=== PATIENT | female | born 1990 | race Caucasian/White ===

== ENCOUNTER → 2017-07-08 | Outpatient (CLI) | payer OTHER | END | disposition home or self-care (01) | LOC: C.PAPS 14:05 | PROVIDERS: ATTEND Physician Assistant | DX: Z12.4 Encounter for screening for malignant neoplasm of cervix (principal); R87.615 Unsatisfactory cytologic smear of cervix ==

== ENCOUNTER → 2017-07-08 | Outpatient (CLI) | payer OTHER ==
[2017-07-10 22:59] LABS: CHLAMYDIA TRACH RNA*** NOT DETECTED (NOT DETECTED); GC (NEIS GONORRHOEAE)RNA** NOT DETECTED (NOT DETECTED)
== END | disposition home or self-care (01) ==
LOC: C.LABSPEC 14:17
PROVIDERS: ATTEND Physician Assistant
DX: Z01.419 Encounter for gynecological examination (general) (routine) without abnormal findings (principal)

== ENCOUNTER → 2017-07-15 | Outpatient (CLI) | payer OTHER | END | disposition home or self-care (01) | LOC: C.PAPS 10:21 | PROVIDERS: ATTEND Physician Assistant | DX: R87.615 Unsatisfactory cytologic smear of cervix (principal) ==

== ENCOUNTER → 2017-11-22 | Outpatient (CLI) | payer OTHER | END | disposition home or self-care (01) | LOC: C.PATHSPEC 17:10 | PROVIDERS: ATTEND Plastic Surgery | DX: D22.72 Melanocytic nevi of left lower limb, including hip (principal) ==

== ENCOUNTER 2020-01-25 11:36 | Inpatient (IN) ==
[2020-01-25] MEDS ORDERED: OXYTOCIN 30 UNITS/500 ML BAG IV PRN ×2 (11:55→12:56)
[2020-01-25] MEDS: LACTATED RINGER'S 1,000 ML IV PRN ×4 (12:00→20:05)
[2020-01-25 12:13] LABS: Hematocrit (blood only) 38.2 % (37-47); Hemoglobin 12.7 g/dL (12.0-16.0); Mean Corpuscular Hemoglobin 31.1 pg (25-34); Mean Corpuscular Volume 93.6 fL (80-100); Mean Platelet Volume 10.7 fL (7.4-10.4); Platelet Count 217 K/uL (130-400); RDW Coefficient of Variation 12.8 % (11.5-14.5); Red Blood Count 4.08 M/uL (4.2-5.4); White Blood Count 15.82 K/uL (4.8-10.8)
[2020-01-25] MEDS ORDERED: ePHEDrine sulfate 50 MG/ML AMP ONE (12:13)
[2020-01-25] MEDS ORDERED: BUPIVACAINE 0.25% 30 ML VIAL ONE (12:13)
[2020-01-25] MEDS ORDERED: fentaNYL 2MCG/ML ROPIV 1.25MG/ML 100 ML BAG EPI ONE (12:14)
[2020-01-25] MEDS ORDERED: fentaNYL citrate 100 MCG/2 ML VIAL ONE (12:14)
--- NOTE | 2020-01-25 12:56 | Labor Progress Brief Note ---
Date of Service January 25, 2020 Subjective Patient just received epidural, is beginning to feel more comfortable. LOF clear, no VB, good FM. Assessment & Plan (1) SROM (spontaneous rupture of membranes): Epidural in place, no further progress since admission, will start pitocin as patient is ruptured and comfortable. GBS neg. Physical Exam Physical Exam: FHT Cat 1 [place] not well traced LOF clear Noted to have 2VC and velamentous insertion. No VB currently. Results & Data Vital Signs (Past 12 Hours) Vital Signs Temp Pulse Resp BP Pulse Ox 01/25/20 12:52 115 H 108/63 01/25/20 12:50 102 H 112/64 01/25/20 12:49 111 H 94 01/25/20 12:44 113 H 84 L 01/25/20 12:39 99 H 99 01/25/20 12:34 101 H 99 01/25/20 12:29 92 H 99 01/25/20 12:25 96 H 105/69 01/25/20 12:24 102 H 99 01/25/20 11:44 98.2 F 114 H 20 104/61 Coding Level of Care Code None Diagnoses SROM (spontaneous rupture of membranes)
[2020-01-25 13:07] LABS: Mean Corpuscular Hgb Conc 33.2 g/dL (32-36)
--- NOTE | 2020-01-25 13:07 | Anesthesiology Consultation ---
Date of Service January 25, 2020 Assessment & Plan (1) Encounter for pre-operative examination: Chart Review Chart Review: Acceptable Risk for Surgery and Patient NOT seen in Pre Admission Testing Consults Requested none ASA ASA2 Proposed Anesthesia Anesthesia Type: Labor Epidural Risk / Benefits Reviewed With: PT / POA / Parent / Guardian, Accepts Plan and Informed Consent Obtained History Height/Weight Height: 5 ft 9 in Weight: 143 kg Allergies Allergy/AdvReac Type Severity Reaction Status Date / Time No Known Allergies Allergy Unknown NONE Verified 01/20/20 10:53 Medications Home Medications Medication Instructions Recorded Confirmed Last Taken prenat.vits,eloisa,oyj-[id number]-ftuzf 1 tab PO DAILY 07/08/19 01/20/20 Unknown Active Medications Generic Name Dose Route Start Last Admin Trade Name Freq PRN Reason Stop Dose Admin Lactated Ringer's 1,000 mls @ 125 mls/hr 01/25/20 11:55 01/25/20 13:07 Lr IV 01/27/20 11:54 999 mls/hr .Q8H PRN Administration L&D Protocol Protocol NPO Date Last Intake of Fluids: 01/25/20 Time Last Intake of Fluids: 12:00 Date Last Intake of Solids: 01/25/20 Time Last Intake of Solids: 09:00 Past Medical History Medical History History of epilepsy as a child Exercise / Class Metabolic Activity II 4-5 Yardwork/Stairs/Walk up hill Past Family History Family History Grandfather Cardiac disorder Grandmother Cardiac disorder Aunt Breast cancer Mother Ulcerative colitis Father Hyperlipidemia Denies family history of Ovarian cancer Prostate cancer Myocardial infarction Colorectal cancer Past Surgical History Surgical History History of tonsillectomy S/P wisdom tooth extraction Past Anesthesia History No Hx of Anesthesia Complications and No Family Hx of Anesthesia Complications History of PONV No Hx of PONV and No Hx of Motion Sickness Social History Smoking Status: Never smoker Hx Alcohol Use: No Hx Substance Use: No Physical Exam Vital Signs Last Vital Signs Temp 36.8 C 01/25/20 11:44 Pulse 78 01/25/20 13:04 Resp 20 01/25/20 11:44 BP 107/56 L 01/25/20 13:04 Pulse Ox 98 01/25/20 13:04 ENMT Mouth: no dentition abnormality Thyromental Distance: > or= 3.5 Finger Breadths Mallampati Class: II Neck normal visual inspection Respiratory normal respiratory effort Auscultation: lungs clear to auscultation bilaterally Cardiovascular Rate/Rhythm: regular rate and regular rhythm Psychiatric Orientation: alert Testing Laboratory Results 01/25/20 12:06
[2020-01-25] MEDS ORDERED: DiphenhydrAMINE HCL 50 MG/ML VIAL IV PRN ×2 (13:08→20:03)
[2020-01-25] MEDS ORDERED: ONDANSETRON INJ 2 MG/ML 2 ML VIAL IV PRN ×3 (13:08→20:10)
[2020-01-25] MEDS ORDERED: ePHEDrine sulfate 50 MG/ML AMP IV PRN ×2 (13:08→20:03)
[2020-01-25] MEDS ORDERED: PROMETHAZINE HCL 6.25 MG in SODIUM CHLORIDE 0.9% 50 ML IV PRN (13:08)
[2020-01-25] MEDS ORDERED: fentaNYL 2MCG/ML ROPIV 1.25MG/ML 100 ML BAG EPI PRN (13:08)
[2020-01-25] MEDS ORDERED: NALBUPHINE HCL INJ 10 MG/ML AMP IV PRN ×2 (13:08→20:03)
[2020-01-25] MEDS ORDERED: NALOXONE HCL 1 MG in SODIUM CHLORIDE 0.9% 1000ML 1,000 ML IV PRN ×2 (13:08→20:03)
[2020-01-25] MEDS ORDERED: NALOXONE HCL 0.4 MG/1 ML VIAL/CARP IV PRN ×2 (13:08→20:03)
--- NOTE | 2020-01-25 17:38 | Labor Progress Brief Note ---
Date of Service January 25, 2020 Subjective Comfortable with epidural. Patient and FOB continue to both deny any CP, SOB, cough or COVID exposures. Assessment & Plan (1) SROM (spontaneous rupture of membranes): Progress is being made. Continue augmentation of labor. Reassuring variability and accels noted. Baseline top normal to high; ephedrine effect worn off long ago, no fever at this time, uncertain significance of baseline but watching closely. (2) Two vessel umbilical cord: (3) Velamentous insertion of umbilical cord: Physical Exam Physical Exam: baseline at or just above top of normal range. Moderate variability. Accels present. Variable decels noted. Cat 2. [place] Q2min. Cvx 8/90/0 Temp 37.4 checked due to FHT. Results & Data Vital Signs (Past 12 Hours) Vital Signs Temp Pulse Resp BP Pulse Ox 01/25/20 17:34 97 H 100 01/25/20 17:29 92 H 100 01/25/20 17:25 82 103/59 L 01/25/20 17:24 74 99 01/25/20 17:19 77 100 01/25/20 17:14 114 H 100 01/25/20 17:11 75 111/63 01/25/20 17:09 100 H 100 01/25/20 17:04 114 H 100 01/25/20 16:59 75 100 01/25/20 16:55 80 105/64 01/25/20 16:54 72 99 01/25/20 16:49 101 H 99 01/25/20 16:44 84 99 01/25/20 16:42 85 103/62 01/25/20 16:39 76 100 01/25/20 16:34 80 99 01/25/20 16:29 75 99 01/25/20 16:25 90 91/57 L 01/25/20 16:24 79 98 01/25/20 16:19 76 99 01/25/20 16:14 82 99 01/25/20 16:11 88 100/62 01/25/20 16:09 73 100 01/25/20 16:04 91 H 96 01/25/20 15:59 101 H 99 01/25/20 15:58 83 90 01/25/20 15:56 77 115/66 01/25/20 15:54 74 96 01/25/20 15:49 77 97 01/25/20 15:44 77 98 01/25/20 15:41 72 119/64 01/25/20 15:39 74 98 01/25/20 15:34 79 98 01/25/20 15:30 97.5 F L 01/25/20 15:29 102 H 99 01/25/20 15:26 91 H 118/61 01/25/20 15:24 78 100 01/25/20 15:21 82 93 01/25/20 15:19 73 99 01/25/20 15:14 85 99 01/25/20 15:11 78 112/57 L 01/25/20 15:09 83 98 01/25/20 15:04 74 99 01/25/20 14:59 79 99 01/25/20 14:58 93 H 92 01/25/20 14:54 87 99 01/25/20 14:49 93 H 100 01/25/20 14:44 100 H 100 01/25/20 14:40 91 H 98/64 L 01/25/20 14:39 76 100 01/25/20 14:34 123 H 98 01/25/20 14:29 78 97 01/25/20 14:26 99 H 96/63 L 01/25/20 14:24 69 98 01/25/20 14:19 99 H 98 01/25/20 14:14 73 99 01/25/20 14:11 121 H 81/50 L 01/25/20 14:09 102 H 99 01/25/20 14:04 75 100 01/25/20 13:59 101 H 100 01/25/20 13:55 84 104/65 01/25/20 13:54 84 99 01/25/20 13:49 83 100 01/25/20 13:45 123 H 91 01/25/20 13:44 76 95 01/25/20 13:41 83 111/73 01/25/20 13:40 102 H 91 01/25/20 13:39 107 H 98 01/25/20 13:34 108 H 96 01/25/20 13:29 80 99 01/25/20 13:25 95 H 103/61 01/25/20 13:24 109 H 100 01/25/20 13:22 98.1 F 20 01/25/20 13:20 72 114/65 01/25/20 13:19 77 100 01/25/20 13:16 78 116/61 01/25/20 13:15 104 H 82/49 L 01/25/20 13:14 124 H 98 01/25/20 13:09 98.4 F 72 20 126/71 97 01/25/20 13:08 96 H 126/71 01/25/20 13:06 78 139/65 01/25/20 13:04 78 107/56 L 98 01/25/20 13:02 90 107/56 L 01/25/20 13:00 115 H 115/58 L 01/25/20 12:59 85 98 01/25/20 12:58 70 62/34 L 01/25/20 12:57 75 54/30 L 01/25/20 12:56 82 63/37 L 01/25/20 12:54 103 H 86/50 L 99 01/25/20 12:52 115 H 108/63 01/25/20 12:50 102 H 112/64 01/25/20 12:49 111 H 94 01/25/20 12:44 113 H 84 L 01/25/20 12:39 99 H 99 01/25/20 12:34 101 H 99 01/25/20 12:29 92 H 99 01/25/20 12:25 96 H 105/69 01/25/20 12:24 102 H 99 01/25/20 11:44 98.2 F 114 H 20 104/61 Coding Level of Care Code None Diagnoses SROM (spontaneous rupture of membranes) Two vessel umbilical cord Q27.0 Velamentous insertion of umbilical cord O43.129
[2020-01-25] MEDS ORDERED: CITRIC ACID/SODIUM CITRATE 15 ML UDC ONE (18:49)
--- NOTE | 2020-01-25 18:49 | Labor Progress Brief Note ---
Date of Service January 25, 2020 Subjective Patient comfortable except for some back ache. No urge to push. Assessment & Plan (1) SROM (spontaneous rupture of membranes): Discussion of risks and benefits of proceeding to which I recomme nd at this time. She was not able to demonstrate likelihood of rapid vaginal delivery, She is still normotensive and I therefore doubt tylenol or antibiotic will change the tachycardia, and at this point condition is worsening rather than improving despite fluid resuscitation, reposition and oxygen. The parents are well educated and able to understand risks / benefits, and consent to proceeding. Section called. Anesthesia notified and en route from home. Dr. Copeland called to assist and en route from home. STAT noted. Physical Exam Physical Exam: FHT continue to deteriorate with worsening tachycardia, baseline up to 190 with moderate variability but variable decels and no further accels. [place] Q2-4min. Pitocin stopped. Cvx 9cm, +1. Test push tried to see if Daja could push past the remaining cervix and deliver rapidly. Unfortuntely the fetus is in transverse position and she is unable to push past the remaining cervix or rotate the into an A-P orientation. Results & Data Vital Signs (Past 12 Hours) Vital Signs Temp Pulse Resp BP Pulse Ox 01/25/20 18:41 88 109/66 01/25/20 18:40 93 H 91 01/25/20 18:39 81 100 01/25/20 18:34 86 100 01/25/20 18:29 87 100 01/25/20 18:26 79 116/67 01/25/20 18:24 95 H 100 01/25/20 18:19 82 100 01/25/20 18:14 100 H 100 01/25/20 18:12 78 108/62 01/25/20 18:10 99.3 F 89 20 87 L 01/25/20 18:09 87 100 01/25/20 18:04 98 H 99 01/25/20 17:59 91 H 96 01/25/20 17:56 90 98/64 L 01/25/20 17:54 117 H 97 01/25/20 17:49 99 H 94/55 L 97 01/25/20 17:47 99 H 92 01/25/20 17:44 87 92 01/25/20 17:43 89 86/53 L 01/25/20 17:42 107 H 92 01/25/20 17:39 127 H 97 01/25/20 17:34 99.3 F 97 H 20 100 01/25/20 17:29 92 H 100 01/25/20 17:25 82 103/59 L 01/25/20 17:24 74 99 01/25/20 17:19 77 100 01/25/20 17:14 114 H 100 01/25/20 17:11 75 111/63 01/25/20 17:09 100 H 100 01/25/20 17:04 114 H 100 01/25/20 16:59 75 100 01/25/20 16:55 80 20 105/64 01/25/20 16:54 72 99 01/25/20 16:49 101 H 99 01/25/20 16:44 84 99 01/25/20 16:42 85 103/62 01/25/20 16:39 76 100 01/25/20 16:34 80 99 01/25/20 16:29 75 99 01/25/20 16:25 90 18 91/57 L 01/25/20 16:24 79 98 01/25/20 16:19 76 99 01/25/20 16:14 82 99 01/25/20 16:11 88 100/62 01/25/20 16:09 73 100 01/25/20 16:04 91 H 96 01/25/20 15:59 101 H 99 01/25/20 15:58 83 90 01/25/20 15:56 77 20 115/66 01/25/20 15:54 74 96 01/25/20 15:49 77 97 01/25/20 15:44 77 98 01/25/20 15:41 72 119/64 01/25/20 15:39 74 98 01/25/20 15:34 79 98 01/25/20 15:30 97.5 F L 20 01/25/20 15:29 102 H 99 01/25/20 15:26 91 H 118/61 01/25/20 15:24 78 100 01/25/20 15:21 82 93 01/25/20 15:19 73 99 01/25/20 15:14 85 99 01/25/20 15:11 78 112/57 L 01/25/20 15:09 83 98 01/25/20 15:04 74 99 01/25/20 14:59 79 99 01/25/20 14:58 93 H 92 01/25/20 14:54 87 99 01/25/20 14:49 93 H 100 01/25/20 14:44 100 H 100 01/25/20 14:40 91 H 20 98/64 L 01/25/20 14:39 76 100 01/25/20 14:34 123 H 98 01/25/20 14:29 78 97 01/25/20 14:26 99 H 96/63 L 01/25/20 14:24 69 98 01/25/20 14:19 99 H 98 01/25/20 14:14 73 99 01/25/20 14:11 121 H 81/50 L 01/25/20 14:09 102 H 99 01/25/20 14:04 75 100 01/25/20 13:59 101 H 100 01/25/20 13:55 84 104/65 01/25/20 13:54 84 99 01/25/20 13:49 83 100 01/25/20 13:45 123 H 91 01/25/20 13:44 76 95 01/25/20 13:41 83 20 111/73 01/25/20 13:40 102 H 91 01/25/20 13:39 107 H 98 01/25/20 13:34 108 H 96 01/25/20 13:29 80 99 01/25/20 13:25 95 H 103/61 01/25/20 13:24 109 H 100 01/25/20 13:22 98.1 F 20 01/25/20 13:20 72 114/65 01/25/20 13:19 77 100 01/25/20 13:16 78 116/61 01/25/20 13:15 104 H 82/49 L 01/25/20 13:14 124 H 98 01/25/20 13:09 98.4 F 72 20 126/71 97 01/25/20 13:08 96 H 126/71 01/25/20 13:06 78 139/65 01/25/20 13:04 78 107/56 L 98 01/25/20 13:02 90 107/56 L 01/25/20 13:00 115 H 20 115/58 L 01/25/20 12:59 85 98 01/25/20 12:58 70 62/34 L 04/06/20 12:57 75 54/30 L 01/25/20 12:56 82 63/37 L 01/25/20 12:54 103 H 86/50 L 99 01/25/20 12:52 115 H 108/63 01/25/20 12:50 102 H 112/64 01/25/20 12:49 111 H 94 01/25/20 12:44 113 H 84 L 01/25/20 12:39 99 H 99 01/25/20 12:34 101 H 99 01/25/20 12:29 92 H 99 01/25/20 12:25 96 H 105/69 01/25/20 12:24 102 H 99 01/25/20 11:44 98.2 F 114 H 20 104/61 Coding Level of Care Code None Diagnoses SROM (spontaneous rupture of membranes)
[2020-01-25] MEDS ORDERED: CITRIC ACID/SODIUM CITRATE 15 ML UDC PO SCH (19:00)
[2020-01-25] MEDS ORDERED: CEFAZOLIN 2000MG 2,000 MG/15 ML SYR IV SCH (19:00)
[2020-01-25] MEDS ORDERED: MoRPHine SULFATE PF 1 MG/ML 10 ML AMP/VIAL ONE (19:11)
[2020-01-25] MEDS ORDERED: EPINEPHrine INJ 1 MG/ML AMP ONE (19:13)
[2020-01-25] MEDS ORDERED: CHLOROPROCAINE HCL 3% 20 ML VIAL ONE ×3 (19:13→19:15)
[2020-01-25] MEDS ORDERED: OXYTOCIN 10 UNITS/ML VIAL ONE (19:13)
[2020-01-25] MEDS ORDERED: ONDANSETRON INJ 2 MG/ML 2 ML VIAL ONE (19:13)
[2020-01-25] MEDS ORDERED: SODIUM BICARBONATE 8.4% INJ 50 MEQ/50 ML VIAL ONE (19:13)
--- NOTE | 2020-01-25 19:38 | Operative Report ---
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 Normal tubes, ovaries. Anterior-fundal placenta. in LOT position. Specimens Placenta Cord blood Cord blood gases Drains Collins Anesthesia Type Spinal Complications none Disposition Accompanied Patient To Recovery: Yes Disposition: L&D Description of Procedure The patient was brought to the operating room and placed on the table in the supine position with a leftward tilt, then prepped and draped in standard sterile fashion. A hard time out was taken prior to proceeding. A pfannensteil incision was created sharply and carried down to the fascia using bovie electrocautery. The fascia was nicked and then extended using tam scissors. The edges of the fascia were grasped with Umair clamps and elevated, then sharply and bluntly dissected off the underlying rectus. The midline of the rectus was identified and bluntly . The peritoneum was bluntly entered, and this entry was extended using pressure from the surgeon's hands. The bladder retractor was placed and the lower uterine segment was examined and found to be well developed but with a notable Bendel's Ring between the MICHAELA and the midportion of the uterine body. Additionally, a soft 8-9cm vascular bundle was noted at the left posterior cornu. A bladder flap was created and the retractor was replaced behind this flap to protect the bladder. A transverse lower uterine incision was then created, with final entry to the uterine cavity made in a blunt manner with the surgeon's finger. Clear amniotic fluid was encountered. The head was elevated to the incision and delivered using mild fundal pressure. The cord was doubly clamped and cut, then the vigorous infant was taken to the warmer for loss prevention auditor care. The placenta was manually extracted, then the uterus was gently exteriorized from the maternal abdomen. The cavity was cleared of clot and debris using a dry lap sponge. The angles of the incision were identified with allis clamps, and the hysterotomy was then repaired in running locked fashion using 0-vicryl suture, followed by a second imbricating layer. The tubes and ovaries were examined and found to be normal bilaterally. Even though the uterus contracted very nicely to a firm overall tone, the 8-9cm lump protruding from the posterior L cornu remained present and unchanged. It was soft, partially compressible, and appeared to be comprised of a tangle of dilated vessels. The FOB is an orthopedic surgeon and was offered - and accepted - an opportunity to view this structure. We discussed that the differential includes AVM, Adenomyoma, atypical placentation, and far less likely malignancy. Given the current excellent uterine tone, easy release of the placenta and lack of excessive bleeding I doubt abnormal placentation. We discussed the recommendation to close per usual, observe clinically, and re- image the uterus to further characterize this finding if it persists. The posterior gutter was irrigated and cleared of clot and debris. The uterus was then gently re-internalized to the abdomen. Lateral gutters were cleared of clot and debris using a damp lap sponge, and a final exam of the hysterotomy revealed good hemostasis. The rectus muscles were allowed to reapproximate naturally. The angle of the fascia was grasped with a Umair clamp and the fascia was then repaired in running non-locked fashion with 1-vicryl suture. At the completion of repair, the fascia was examined and found to be free of any defect. The subcutaneous tissue was copiously irrigated and then reapproximated using 3-0 chromic. The skin was then closed using 4-0 monocryl in a running subcuticular fashion and a dermabond dressing was applied. The collins was noted to be draining clear yellow urine as the patient was transferred back to her recovery room. I attest to the content of the Intraoperative Record and any orders documented therein. Any exceptions are noted below.
[2020-01-25 19:55] LABS: Base Excess Cord Arterial Bld 0.4 mEq/L (-9-1.8); Base Excess Cord Venous Blood -1.7 mEq/L (-7.7-1.9); CO2 Cord Arterial Blood 44 mmHg (39.1-73.5); Cord Venous Blood HCO3 23 mmol/L (18.4-26.8); Cord Venous Blood PCO2 38 mmHg (30.4-57.2); Cord Venous Blood PO2 34 mmHg (14.1-43.3); Cord Venous Blood pH 7.39 (7.20-7.44); HCO3 Cord Arterial Blood 26 mmol/L (19.7-28.5); PO2 Cord Arterial Blood 25 mmHg (4.1-31.7); pH Cord Arterial Blood 7.38 (7.1-7.38)
[2020-01-25] MEDS ORDERED: NALOXONE HCL 0.08 MG in SYRINGE 1.8 ML IV PRN (20:03)
[2020-01-25] MEDS ORDERED: HYDROmorphone INJ 0.5 MG/0.5 ML SYR IV PRN (20:03)
[2020-01-25] MEDS ORDERED: LACTATED RINGER'S 500 ML IV PRN (20:03)
[2020-01-25] MEDS ORDERED: MoRPHine SULFATE PF 1 MG/ML 10 ML AMP/VIAL EPI ONE (20:03)
[2020-01-25] MEDS ORDERED: KETOROLAC 30 MG/ML VIAL IV PRN (20:03)
[2020-01-25] MEDS ORDERED: HYDROCORTISONE ACETATE 25 MG SUPP PR PRN (20:10)
[2020-01-25] MEDS ORDERED: SENNA 8.6 MG TAB PO PRN (20:10)
[2020-01-25] MEDS ORDERED: MAGNESIUM HYDROXIDE SUSP 30 ML UDC PO PRN (20:10)
[2020-01-25] MEDS ORDERED: DIPHTHERIA/TETANUS/PERTUSSIS 0.5 ML SYR/VIAL IM ONE (20:10)
[2020-01-25] MEDS ORDERED: BENZOCAINE 20% AER SPR 82.5 GM CAN EXT PRN (20:10)
[2020-01-25] MEDS ORDERED: SUPERCREAM 0.870% 15 GM JAR EXT PRN (20:10)
[2020-01-25] MEDS ORDERED: DC INTRASPINAL MORPHINE SCH (20:15)
[2020-01-25] MEDS ORDERED: NO NARCOTICS OR SEDATIVES SCH (20:15)
[2020-01-25] MEDS ORDERED: SODIUM CHLORIDE 0.9% 1000ML 1,000 ML IV SCH (20:15)
[2020-01-25] MEDS ORDERED: OXYTOCIN 30 UNITS in LACTATED RINGER'S 1,000 ML IV SCH (20:30)
--- NOTE | 2020-01-25 21:15 | Anesthesiology Progress Note ---
Date of Service January 25, 2020 Anesthesia Post Procedure Vital Signs Vital Signs: Temp Pulse Resp BP Pulse Ox 01/25/20 21:07 88 98 01/25/20 21:06 86 110/59 L 01/25/20 21:02 92 H 98 01/25/20 20:57 99 H 98 01/25/20 20:56 96 H 102/56 L 01/25/20 20:52 98 H 98 01/25/20 20:47 122 H 94/50 L 98 01/25/20 20:45 18 01/25/20 20:42 135 H 98 01/25/20 20:37 146 H 83/44 L 98 01/25/20 20:35 18 01/25/20 20:32 127 H 98 01/25/20 20:28 131 H 90/54 L 01/25/20 20:27 116 H 86/51 L 97 01/25/20 20:25 18 01/25/20 20:22 142 H 98 01/25/20 20:20 125 H 92/53 L 01/25/20 20:17 135 H 98 01/25/20 20:15 18 01/25/20 20:12 109 H 98 01/25/20 20:11 190 H 147/109 H 01/25/20 20:08 164/125 H 01/25/20 20:06 126 H 93 01/25/20 20:05 18 01/25/20 20:01 116 H 89 L 01/25/20 19:56 115 H 92 01/25/20 19:55 37.1 C 18 01/25/20 19:52 106 H 94 01/25/20 19:51 104 H 95 01/25/20 19:45 37.1 C 18 01/25/20 18:44 88 100 01/25/20 18:41 88 109/66 01/25/20 18:40 93 H 91 01/25/20 18:39 81 100 01/25/20 18:34 86 100 01/25/20 18:30 37.5 C 01/25/20 18:29 87 100 01/25/20 18:26 79 116/67 01/25/20 18:24 95 H 100 01/25/20 18:19 82 100 01/25/20 18:14 100 H 100 01/25/20 18:12 78 108/62 01/25/20 18:10 37.4 C 89 20 87 L 01/25/20 18:09 87 100 01/25/20 18:04 98 H 99 01/25/20 17:59 91 H 96 01/25/20 17:56 90 98/64 L 01/25/20 17:54 117 H 97 01/25/20 17:49 99 H 94/55 L 97 01/25/20 17:47 99 H 92 01/25/20 17:44 87 92 01/25/20 17:43 89 86/53 L 01/25/20 17:42 107 H 92 01/25/20 17:39 127 H 97 01/25/20 17:34 37.4 C 97 H 20 100 01/25/20 17:29 92 H 100 01/25/20 17:25 82 103/59 L 01/25/20 17:24 74 99 01/25/20 17:19 77 100 01/25/20 17:14 114 H 100 01/25/20 17:11 75 111/63 01/25/20 17:09 100 H 100 01/25/20 17:04 114 H 100 01/25/20 16:59 75 100 01/25/20 16:55 80 20 105/64 01/25/20 16:54 72 99 01/25/20 16:49 101 H 99 01/25/20 16:44 84 99 01/25/20 16:42 85 103/62 01/25/20 16:39 76 100 01/25/20 16:34 80 99 01/25/20 16:29 75 99 01/25/20 16:25 90 18 91/57 L 01/25/20 16:24 79 98 01/25/20 16:19 76 99 01/25/20 16:14 82 99 01/25/20 16:11 88 100/62 01/25/20 16:09 73 100 01/25/20 16:04 91 H 96 01/25/20 15:59 101 H 99 01/25/20 15:58 83 90 01/25/20 15:56 77 20 115/66 01/25/20 15:54 74 96 01/25/20 15:49 77 97 01/25/20 15:44 77 98 01/25/20 15:41 72 119/64 01/25/20 15:39 74 98 01/25/20 15:34 79 98 01/25/20 15:30 36.4 C L 20 01/25/20 15:29 102 H 99 01/25/20 15:26 91 H 118/61 01/25/20 15:24 78 100 01/25/20 15:21 82 93 01/25/20 15:19 73 99 01/25/20 15:14 85 99 01/25/20 15:11 78 112/57 L 01/25/20 15:09 83 98 01/25/20 15:04 74 99 01/25/20 14:59 79 99 01/25/20 14:58 93 H 92 01/25/20 14:54 87 99 01/25/20 14:49 93 H 100 01/25/20 14:44 100 H 100 01/25/20 14:40 91 H 20 98/64 L 01/25/20 14:39 76 100 01/25/20 14:34 123 H 98 01/25/20 14:29 78 97 01/25/20 14:26 99 H 96/63 L 01/25/20 14:24 69 98 01/25/20 14:19 99 H 98 01/25/20 14:14 73 99 01/25/20 14:11 121 H 81/50 L 01/25/20 14:09 102 H 99 01/25/20 14:04 75 100 01/25/20 13:59 101 H 100 01/25/20 13:55 84 104/65 01/25/20 13:54 84 99 01/25/20 13:49 83 100 01/25/20 13:45 123 H 91 01/25/20 13:44 76 95 01/25/20 13:41 83 20 111/73 01/25/20 13:40 102 H 91 01/25/20 13:39 107 H 98 01/25/20 13:34 108 H 96 01/25/20 13:29 80 99 01/25/20 13:25 95 H 103/61 01/25/20 13:24 109 H 100 01/25/20 13:22 36.7 C 20 01/25/20 13:20 72 114/65 01/25/20 13:19 77 100 01/25/20 13:16 78 116/61 01/25/20 13:15 104 H 82/49 L 01/25/20 13:14 124 H 98 01/25/20 13:09 36.9 C 72 20 126/71 97 01/25/20 13:08 96 H 126/71 01/25/20 13:06 78 139/65 01/25/20 13:04 78 107/56 L 98 01/25/20 13:02 90 107/56 L 01/25/20 13:00 115 H 20 115/58 L 01/25/20 12:59 85 98 01/25/20 12:58 70 62/34 L 01/25/20 12:57 75 54/30 L 01/25/20 12:56 82 63/37 L 01/25/20 12:54 103 H 86/50 L 99 01/25/20 12:52 115 H 108/63 01/25/20 12:50 102 H 112/64 01/25/20 12:49 111 H 94 01/25/20 12:44 113 H 84 L 01/25/20 12:39 99 H 99 01/25/20 12:34 101 H 99 01/25/20 12:29 92 H 99 01/25/20 12:25 96 H 105/69 01/25/20 12:24 102 H 99 01/25/20 11:44 36.8 C 114 H 20 104/61 Transfer of Care Handoff Completed per policy Notes Mental Status: alert / awake / arousable Patient Amnestic to Procedure: Yes Nausea / Vomiting: adequately controlled Pain: adequately controlled Airway Patency, RR, SpO2: stable & adequate BP & HR: stable & adequate Hydration State: stable & adequate Neuraxial Anesthesia: was administered and sensory block is resolving Anesthetic Complications: no major complications apparent and Pt Satisfied with anesthetic care Notes: The patient was tachycardic throughout the operative period and into recovery. She was given an IV bolus of crystalloid and her HR is now int the 80s.
[2020-01-26] MEDS: LACTATED RINGER'S 1,000 ML IV SCH ×3 (01:19→14:19)
[2020-01-26 06:28] LABS: Hematocrit (blood only) 30.9 % (37-47); Hemoglobin 10.4 g/dL (12.0-16.0); Mean Corpuscular Hemoglobin 31.7 pg (25-34); Mean Corpuscular Hgb Conc 33.7 g/dL (32-36); Mean Corpuscular Volume 94.2 fL (80-100); Mean Platelet Volume 9.9 fL (7.4-10.4); Platelet Count 174 K/uL (130-400); RDW Standard Deviation 44.1 fL (36.4-46.3); Red Blood Count 3.28 M/uL (4.2-5.4); White Blood Count 20.74 K/uL (4.8-10.8)
[2020-01-26 06:49] LABS: Basophils # (auto) 0.01 K/uL (0-0.2); Immature Granulocytes # (auto) 0.06 K/uL (0.00-0.02); Immature Granulocytes % (auto) 0.3 %; Lymphocytes # (auto) 1.58 K/uL (1.2-3.4); Lymphocytes % (auto) 7.6 %; Monocytes % (auto) 7.2 %; Neutrophils # (auto) 17.59 K/uL (1.4-6.5); Neutrophils % (auto) 84.9 %
--- NOTE | 2020-01-26 07:13 | Obstetrical Progress Note ---
Date of Service January 26, 2020 Assessment & Plan (1) Delivery by section: POD#1 1' CS for NRFHT, recovering well. Almaraz out, advance diet, ambulate today. Subjective Ambulation: ambulating normally Voiding: no voiding problems Passing Gas:: Yes Diet Tolerance:: regular diet Lochia:: Small Feeding Type:: breast feeding Physical Exam Constitutional WD/WN, vitals as above Eyes PERRL, conjunctivae normal, anicteric sclerae Neck normal visual inspection Respiratory normal respiratory effort and able to speak in complete sentences; no respiratory distress and no labored breathing Cardiovascular Rate/Rhythm: regular rate and regular rhythm Extremities: no edema Chest (Breasts) Chest: normal inspection of chest Gastrointestinal (Abdomen) Inspection/Auscultation: abdomen normal to inspection Soft, postgravid, incision c/d/i with surgical glue. Psychiatric A+Ox3, euthymic affect Genitourinary OB Exam Abdomen: + fundal height Fundus: + firm and + relation to umbilicus (fundus just below umbilicus); not tender Results & Data Vital Signs (Past 12 Hours) Vital Signs Temp Pulse Pulse Resp BP BP Pulse Ox 01/26/20 06:00 18 95 01/26/20 05:00 16 95 01/26/20 04:00 98.2 F 83 16 98/59 L 96 01/26/20 03:00 16 95 01/26/20 02:00 16 95 01/26/20 01:09 16 95 01/26/20 00:10 98.1 F 64 16 105/55 L 96 01/25/20 23:00 16 94 01/25/20 22:40 98.6 F 88 18 105/64 98 01/25/20 22:22 82 96 01/25/20 22:17 79 96 01/25/20 22:12 96 H 95 01/25/20 22:10 98.6 F 18 01/25/20 22:07 83 107/64 96 01/25/20 22:02 91 H 95 01/25/20 21:57 83 97 01/25/20 21:52 105 H 97 01/25/20 21:47 93 H 103/59 L 97 01/25/20 21:42 99 H 95 01/25/20 21:40 18 01/25/20 21:37 84 107/61 97 01/25/20 21:32 81 96 01/25/20 21:27 84 97 01/25/20 21:26 83 105/60 01/25/20 21:22 80 97 01/25/20 21:17 84 98 01/25/20 21:16 86 110/61 01/25/20 21:12 92 H 98 01/25/20 21:10 98.6 F 18 01/25/20 21:07 88 98 01/25/20 21:06 86 110/59 L 01/25/20 21:02 92 H 98 01/25/20 20:57 99 H 98 01/25/20 20:56 96 H 102/56 L 01/25/20 20:52 98 H 98 01/25/20 20:47 122 H 94/50 L 98 01/25/20 20:45 18 01/25/20 20:42 135 H 98 01/25/20 20:37 146 H 83/44 L 98 01/25/20 20:35 18 01/25/20 20:32 127 H 98 01/25/20 20:28 131 H 90/54 L 01/25/20 20:27 116 H 86/51 L 97 01/25/20 20:25 18 01/25/20 20:22 142 H 98 01/25/20 20:20 125 H 92/53 L 01/25/20 20:17 135 H 98 01/25/20 20:15 18 01/25/20 20:12 109 H 98 01/25/20 20:11 190 H 147/109 H 01/25/20 20:08 164/125 H 01/25/20 20:06 126 H 93 01/25/20 20:05 18 01/25/20 20:01 116 H 89 L 01/25/20 19:56 115 H 92 01/25/20 19:55 98.8 F 18 01/25/20 19:52 106 H 94 01/25/20 19:51 104 H 95 01/25/20 19:45 98.8 F 18
[2020-01-26] MEDS: FERROUS SULFATE 325 MG TAB PO SCH (08:38)
[2020-01-26] MEDS: SIMETHICONE 80 MG CHEW PO SCH ×5 (08:38→19:59)
[2020-01-26] MEDS: PRENATAL VITAMIN 1 TAB PO SCH (08:38)
[2020-01-26] MEDS: DOCUSATE SODIUM 100 MG CAP PO SCH ×3 (08:38→19:59)
[2020-01-26] MEDS ORDERED: NON-FORMULARY MEDICATION (Prenat.Vits,Cal,Min-Iron-Folic 1 TAB) PO SCH (09:00)
[2020-01-26] MEDS ORDERED: KETOROLAC 30 MG/ML VIAL IV PRN (14:00)
[2020-01-26] MEDS ORDERED: PROMETHAZINE HCL 25 MG in SODIUM CHLORIDE 0.9% 50 ML IV PRN (14:00)
[2020-01-26] MEDS ORDERED: MEPERIDINE HCL 50 MG/ML CARP IV PRN (14:00)
[2020-01-26] MEDS ORDERED: OXYCODONE/ACETAMINOPHEN 5mg/325mg TAB PO PRN (14:00)
[2020-01-26] MEDS ORDERED: DiphenhydrAMINE HCL 50 MG/ML VIAL IV PRN (14:00)
[2020-01-26] MEDS ORDERED: bisacodyL 5 MG TABEC PO SCH (20:00)
[2020-01-26] MEDS: IBUPROFEN 600 MG TAB PO PRN (20:03)
[2020-01-27 06:33] LABS: Hematocrit (blood only) 30.3 % (37-47)
--- NOTE | 2020-01-27 07:10 | Obstetrical Progress Note ---
Date of Service January 27, 2020 Assessment & Plan (1) Delivery by section: - H/H stable - tolerating po well - patient desires d/c - instructions/Rx given - f/u in 6 weeks Subjective Ambulation: ambulating normally Voiding: no voiding problems Passing Gas:: Yes Diet Tolerance:: regular diet Feeding Type:: breast feeding Physical Exam Constitutional WD/WN, vitals as above Respiratory normal respiratory effort, lungs clear to auscultation Cardiovascular RRR, no murmur, no edema Gastrointestinal (Abdomen) Incision intact, appropriate post-op tenderness Musculoskeletal (-) deep calf tenderness Results & Data Vital Signs (Past 12 Hours) Vital Signs Temp Pulse Resp BP Pulse Ox Pulse Ox 01/27/20 00:15 98.1 F 91 H 20 105/65 95 95
--- NOTE | 2020-01-27 07:15 | Anesthesiology Progress Note ---
Date of Service January 27, 2020 Anesthesia Post Procedure Vital Signs Vital Signs: Temp Pulse Resp BP Pulse Ox Pulse Ox Pulse Ox 01/27/20 00:15 98.1 F 91 H 20 105/65 95 95 01/26/20 16:11 99.0 F 92 H 20 105/65 5 L 01/26/20 14:00 20 97 01/26/20 13:30 16 96 01/26/20 12:45 16 99 01/26/20 11:48 98.8 F 92 H 20 101/57 L 97 01/26/20 11:00 20 96 01/26/20 10:12 16 95 01/26/20 09:10 20 97 01/26/20 08:10 20 95 95 01/26/20 07:46 98.4 F 92 H 18 102/61 95 Pain Intensity Abdomen: Pain Intensity: 1 Transfer of Care Handoff Completed per policy Notes Mental Status: alert / awake / arousable and participated in evaluation Nausea / Vomiting: adequately controlled Pain: adequately controlled Airway Patency, RR, SpO2: stable & adequate BP & HR: stable & adequate Hydration State: stable & adequate Neuraxial Anesthesia: was administered and sensory block resolved Anesthetic Complications: no major complications apparent and Pt Satisfied with anesthetic care
[2020-01-27] MEDS: FERROUS SULFATE 325 MG TAB PO SCH (08:28)
[2020-01-27] MEDS: SIMETHICONE 80 MG CHEW PO SCH (08:28)
[2020-01-27] MEDS: PRENATAL VITAMIN 1 TAB PO SCH (08:28)
[2020-01-27] MEDS: DOCUSATE SODIUM 100 MG CAP PO SCH (08:28)
[2020-01-27] MEDS: IBUPROFEN 600 MG TAB PO PRN (08:29)
[2020-01-27] MEDS ORDERED: bisacodyL 10 MG SUPP PR PRN (19:56)
--- NOTE | 2020-01-28 12:34 | Discharge Summary ---
Date of Service January 28, 2020 Discharge Data Consultations 01/25/20 11:55 Consult Anesthesiology Stat 01/25/20 18:49 Consult Anesthesiology Stat Procedures Performed Operation Date: 01/25/20 19:05 Actual Procedures p Section in LD - Mary Kate Valdovinos MD Hospital Course (1) Delivery by section: Patient admitted in labor, ultimately underwent 1' LTCS for NRFHT. Surgery was uncomplicated, see op report for details. Discharged to home with typical post op instructions, oral pain management, and instructions for 6 week post op check. Coding Level of Care Code None Diagnoses Delivery by section
== END 2020-01-27 13:45 | disposition home or self-care (01) | DRG 788 ==
LOC: OPB 11:36 → 4S1 11:38 → 4S2 22:30